=== PATIENT | male | born 1960 | race Caucasian/White ===

== ENCOUNTER → 2016-04-09 | Outpatient (CLI) | payer BC ==
[~2016-04-09] MED LIST: CLR/5 PO; LOSA50TA36 PO; PANT40TA PO; SIMV40TA2 PO
--- NOTE | 2016-04-09 16:02 | DIAGNOSTIC IMAGING REPORT ---
CHEST 2 VIEWS ROUTINE HISTORY: COUGH COMPARISON: Chest 10/13/2011. FINDINGS: The lungs are clear. Cardiac silhouette is normal in size. No pleural effusions. No pneumothorax. IMPRESSION: No acute process. Electronically signed by: Augusto Moss M.D. 04/09/2016 4:00 PM
== END | disposition home or self-care (01) ==
LOC: C.RAD1850 15:20
PROVIDERS: ATTEND Internal Medicine
DX: R05 Cough (principal)

== ENCOUNTER → 2016-05-12 | Outpatient (CLI) | payer BC ==
[~2016-05-12] MED LIST changes: -LOSA50TA36 PO; +LOSA50TA55 PO
--- NOTE | 2016-05-12 13:02 | DIAGNOSTIC IMAGING REPORT ---
DOUBLE CONTRAST UPPER GI SERIES AND BARIUM SWALLOW CLINICAL HISTORY: Dysphagia with solids. Difficulty swallowing. COMPARISON STUDY: None FLUOROSCOPY TIME: 4.1 minutes. FINDINGS: Esophageal motility was normal. A small hiatal hernia was noted. There was persistent mild narrowing at the gastroesophageal junction. A 13 mm barium tablet did not pass beyond this level on this examination and several images demonstrated mild mucosal irregularity at this level. No reflux was elicited. Gastric fold pattern was normal. Duodenum was normal. Caliber of the opacified jejunum was normal. IMPRESSION: Small hiatal hernia with area of mild narrowing at the gastroesophageal junction with persistent holdup of a 13 mm barium tablet at this level. Mild associated mucosal irregularity. Upper endoscopy is recommended to exclude a mucosal lesion/stricture. Electronically signed by: Tramaine Ac M.D. 05/12/2016 1:00 PM Dictated Date/Time: 05/12/2016 12:58 PM
== END | disposition home or self-care (01) ==
LOC: C.RAD 12:08
PROVIDERS: ATTEND Internal Medicine
DX: R13.10 Dysphagia, unspecified (principal); K44.9 Diaphragmatic hernia without obstruction or gangrene

== ENCOUNTER → 2016-05-26 | Day surgery (SDC) | payer BC ==
[2016-05-22 11:26] VITALS: BMI 37.0
[~2016-05-26] VITALS: Ht 185.4 cm; Wt 129.6 kg
[~2016-05-26] MED LIST changes: +LIDOCAINE HCL 2% 2 ML VIAL (20MG/ML) ONE; +MIDAZOLAM HCL 1 MG/ML 2ML VIAL ONE; +ONDANSETRON INJ 2 MG/ML 2 ML VIAL ONE; +PROPOFOL IV EMULSION 10 MG/ML 20 ML VIAL IV ONE; +SODIUM CHLORIDE 0.9% 500ML 500 ML IV ONE
[2016-05-26 14:23] VITALS: Ht 185.4 cm; Wt 129.6 kg
--- NOTE | 2016-05-26 15:03 | Endo History and Physical ---
History & Physical Date of Service: May 26, 2016. Chief Complaint: Abnormal findings on barium swallow Referring Physician: DR. RODRÍGUEZ History of Present Illness 55 yo CM who presents for EGD secondary to abnormal Barium swallow. Past Surgical History Hx Cardiac Surgery: No Hx Internal Defibrillator: No Hx Pacemaker: No Hx Abdominal Surgery: No Hx of Implantable Prosthesis: No Hx Post-Op Nausea and Vomiting: No Hx Cancer Surgery: No Hx Thoracic Surgery: No Hx Orthopedic: Yes (RT KNEE SURGERY, RT ELBOW SURGERY) Hx Urinary Tract Surgery: No Family History None Social History Smoking Status: Never Smoker Hx Substance Use: No Hx Alcohol Use: Yes (4 BEERS/DAY) Allergies Coded Allergies: No Known Allergies (Unverified , 05/26/16) Current Medications Reported Home Medications Medications Dose Route/Sig Max Daily Dose Days Date Category Dose Instructions Clarinex (Desloratadine) 5 Mg Tab 5 Mg PO QAM 05/22/16 Reported Zocor (Simvastatin) 40 Mg Tab 40 Mg PO HS 05/22/16 Reported Losartan Potassium/Hydroc (Losartan Potassium & Hydrochlo) 1 Tab Tab 1 Tab PO QAM 05/22/16 Reported 100MG/25MG Vital Signs Weight (Kilograms): 129.55 Height (Feet): 6 Height (Inches): 1 Date Time Temp Pulse Resp B/P Pulse Ox O2 Delivery O2 Flow Rate FiO2 05/26/16 14:35 36.6 90 20 164/86 97 Room Air Physical Exam General Appearance: WD/WN, no apparent distress Respiratory/Chest: Auscultation: breath sounds normal Cardiovascular: Heart Auscultation: RRR Abdomen: Bowel Sounds: normal Inspection & Palpation: soft, non-distended, no tenderness, guarding & rebound Assessment and Plan Assessment: 55 yo CM who presents for EGD secondary to abnormal Barium swallow. Plan: Proceed with EGD.
--- NOTE | 2016-05-26 15:18 | Discharge Instructions ---
Endoscopy Patient Instructions Date / Procedure(s) Performed May 26, 2016. Allergy Information Coded Allergies: No Known Allergies (Unverified , 05/26/16) Discharge Date / Findings May 26, 2016. Gastritis s/p biopsies Hiatal hernia Esophageal stricture s/p dilation to 15mm Reflux esophagitis Medication Instructions 1) OK to resume all medications today as prescribed 2) Start Protonix 40mg by mouth each morning 1/2 hour prior to breakfast. Reported Home Medications Medications Dose Route/Sig Max Daily Dose Days Date Category Dose Instructions Clarinex (Desloratadine) 5 Mg Tab 5 Mg PO QAM 05/22/16 Reported Zocor (Simvastatin) 40 Mg Tab 40 Mg PO HS 05/22/16 Reported Losartan Potassium/Hydroc (Losartan Potassium & Hydrochlo) 1 Tab Tab 1 Tab PO QAM 05/22/16 Reported 100MG/25MG Provider Instructions Activity Restrictions - No exercising or heavy lifting for 24 hours. - Do not drink alcohol the day of the procedure. - Do not drive a car or operate machinery until the day after the procedure. - Do not make any important decisions or sign important papers in 24 hours after the procedure. Following Day: - Return to full activity which may include returning to work/school. Diet Start your diet with liquids and light foods (jello, soup, juice, toast). Then eat your usual diet if not nauseated. Treatment For Common After Affects For mild abdominal pain, bloating, or excessive gas: - Rest - Eat lightly - Lie on right side Follow-Up Information Follow-up with DR. RODRÍGUEZ as scheduled Anesthesia Information What You Should Know You have had a procedure that required some medicine to reduce anxiety and discomfort. This treatment is called moderate sedation. After receiving the treatment, you may be sleepy, but you will be able to breathe on your own. The effects of the treatment may last for several hours. Follow these instructions along with Activity/Diet recommendations noted above: * Do NOT do anything where dizziness or clumsiness would be dangerous. * Rest quietly at home today, then you can be up and about tomorrow. * Have a responsible person stay with you the rest of today. * You may have had an I.V. today. If so, you may take the dressing off later today. Recommendations Call your doctor if: * Trouble breathing * Continuous vomiting for more than 24 hours * Temperature above 101 degrees * Severe abdominal pain or bloating * Pain not relieved by pain medicine ordered * There is increased drainage or redness from any incision * A large amount of rectal bleeding greater than 2-3 tablespoons. (If you had a polyp/s removed or have hemorrhoids, a small amount of blood - from the rectum is to be expected.) * You have any unanswered questions or concerns. IN THE EVENT OF A SERIOUS EMERGENCY, GO TO THE NEAREST EMERGENCY ROOM Your discharge instructions were prepared by provider Willy Arellano. Patient Instructions Signature Page Williams Castaneda Patient (or Guardian) Signature/Date: I have read and understand the instructions given to me by my caregivers. Caregiver/RN/Doctor Signature/Date: The above-named patient and/or guardian has received patient instructions on this date. + Original Patient Signature Page (only) stays with chart. Please make copy for patient.
--- NOTE | 2016-05-26 15:23 | GI REPORT ---
Procedure Date: 05/26/2016 2:38 PM Procedure: Upper GI endoscopy Indications: Abnormal UGI series Medicines: Monitored Anesthesia Care Complications: No immediate complications. Estimated Blood Loss: Estimated blood loss: none. Procedure: Pre-Anesthesia Assessment: - Prior to the procedure, a History and Physical was performed, and patient medications and allergies were reviewed. The patient's tolerance of previous anesthesia was also reviewed. The risks and benefits of the procedure and the sedation options and risks were discussed with the patient. All questions were answered, and informed consent was obtained. Prior Anticoagulants: The patient has taken no previous anticoagulant or antiplatelet agents. ASA Grade Assessment: II - A patient with mild systemic disease. After reviewing the risks and benefits, the patient was deemed in satisfactory condition to undergo the procedure. After obtaining informed consent, the endoscope was passed under direct vision. Throughout the procedure, the patient's blood pressure, pulse, and oxygen saturations were monitored continuously. The scope was introduced through the mouth, and advanced to the second part of duodenum. The upper GI endoscopy was accomplished without difficulty. The patient tolerated the procedure well. Findings: LA Grade C (one or more mucosal breaks continuous between tops of 2 or more mucosal folds, less than 75% circumference) esophagitis with no bleeding was found. One moderate benign-appearing, intrinsic stenosis was found. This measured 1.2 cm (inner diameter) x less than one cm (in length) and was traversed. A TTS dilator was passed through the scope. Dilation with a 12-13.5-15 mm balloon (to a maximum balloon size of 15 mm) dilator was performed. The dilation site was examined and showed moderate improvement in luminal narrowing. A small hiatus hernia was present. Localized moderate inflammation characterized by erosions and erythema was found in the gastric antrum. Biopsies were taken with a cold forceps for histology. The examined duodenum was normal. Impression: - LA Grade C reflux esophagitis. - Benign-appearing esophageal stenosis. Dilated. - Small hiatus hernia. - Gastritis. Biopsied. - Normal examined duodenum. Recommendation: - Resume previous diet. - Continue present medications. - Await pathology results. - Repeat the upper endoscopy PRN for retreatment. - Return to primary care physician as previously scheduled. Willy Arellano, 05/26/2016 3:23:12 PM This report has been signed electronically. Note Initiated On: 05/26/2016 2:38 PM I attest to the content of the Intraoperative Record and orders documented therein, exceptions below
[2016-05-26 15:55] VITALS: BP 135/90; PULSE 67; O2SAT 96
--- NOTE | 2016-05-26 16:07 | Anesthesiology Progress Note ---
Anesthesia Post Op Note Date & Time May 26, 2016 at 16:07 Vital Signs Pain Intensity: 0 Vital Signs Past 12 Hours Date Time Temp Pulse Resp B/P Pulse Ox O2 Delivery O2 Flow Rate FiO2 05/26/16 15:55 67 18 135/90 96 Room Air 05/26/16 15:40 66 18 125/73 96 Room Air 05/26/16 15:25 73 16 156/81 98 Mask 10 05/26/16 14:35 36.6 90 20 164/86 97 Room Air Notes Mental Status: alert / awake / arousable, participated in evaluation Pt Amnestic to Procedure: Yes Nausea / Vomiting: adequately controlled Pain: adequately controlled Airway Patency, RR, SpO2: stable & adequate BP & HR: stable & adequate Hydration State: stable & adequate Anesthetic Complications: no major complications apparent
== END | disposition home or self-care (01) ==
LOC: C.GI 14:17
PROVIDERS: ATTEND Internal Medicine
DX: K29.50 Unspecified chronic gastritis without bleeding (principal); K21.0 Gastro-esophageal reflux disease with esophagitis; K22.2 Esophageal obstruction; K44.9 Diaphragmatic hernia without obstruction or gangrene; R93.3 Abnormal findings on diagnostic imaging of other parts of digestive tract

== ENCOUNTER → 2016-09-22 | Day surgery (SDC) | payer BC ==
[2016-09-09 14:36] VITALS: Ht 185.4 cm; Wt 118.2 kg
[~2016-09-22] VITALS: Ht 185.4 cm; Wt 118.2 kg
[~2016-09-22] MED LIST changes: +ATROPINE SULFATE 0.1 MG/ML 5ML SYR IV PRN; +EpHEDrine SULFATE INJ 50 MG/ML AMP IV PRN; +FENTANYL CITRATE INJ 50 MCG/1 ML 2 ML VIAL ONE; -LIDOCAINE HCL 2% 2 ML VIAL (20MG/ML) ONE; +LOSA50TA36 PO; -LOSA50TA55 PO; -MIDAZOLAM HCL 1 MG/ML 2ML VIAL ONE; -ONDANSETRON INJ 2 MG/ML 2 ML VIAL ONE; -SODIUM CHLORIDE 0.9% 500ML 500 ML IV ONE
--- NOTE | 2016-09-22 13:16 | Endo History and Physical ---
History & Physical Date of Service: Sep 22, 2016. Chief Complaint: Chronic reflux, esophagitis Referring Physician: Edwina History of Present Illness 56 yo CM who presents for EGD secondary to GERD. Past Surgical History Hx Cardiac Surgery: No Hx Internal Defibrillator: No Hx Pacemaker: No Hx Abdominal Surgery: No Hx Post-Op Nausea and Vomiting: No Hx Cancer Surgery: No Hx Thoracic Surgery: No Hx Orthopedic: Yes (RT KNEE SURGERY, RT ELBOW SURGERY) Hx Urinary Tract Surgery: No Family History None Social History Smoking Status: Never Smoker Hx Substance Use: No Hx Alcohol Use: Yes (4 BEERS/DAY) Allergies Coded Allergies: No Known Allergies (Unverified , 09/22/16) Current Medications Reported Home Medications Medications Dose Route/Sig Max Daily Dose Days Date Category Dose Instructions Protonix (Pantoprazole) 40 Mg Tab 1 Tab PO QAM 09/09/16 Reported Clarinex (Desloratadine) 5 Mg Tab 5 Mg PO QAM 05/22/16 Reported Zocor (Simvastatin) 40 Mg Tab 40 Mg PO HS 05/22/16 Reported Losartan Potassium/Hydroc (Losartan Potassium & Hydrochlo) 1 Tab Tab 1 Tab PO QAM 05/22/16 Reported 100MG/25MG Vital Signs Weight (Kilograms): 118.18 Height (Feet): 6 Height (Inches): 1 Date Time Temp Pulse Resp B/P (MAP) Pulse Ox O2 Delivery O2 Flow Rate FiO2 09/22/16 12:40 36.6 62 20 153/99 (117) 98 Room Air Physical Exam General Appearance: WD/WN, no apparent distress Respiratory/Chest: Auscultation: breath sounds normal Cardiovascular: Heart Auscultation: RRR Abdomen: Bowel Sounds: normal Inspection & Palpation: soft, non-distended, no tenderness, guarding & rebound Assessment and Plan Assessment: 56 yo CM who presents for EGD secondary to GERD. Plan: Proceed with EGD.
--- NOTE | 2016-09-22 13:30 | Discharge Instructions ---
Endoscopy Patient Instructions Date / Procedure(s) Performed Sep 22, 2016. EGD Allergy Information Coded Allergies: No Known Allergies (Unverified , 09/22/16) Discharge Date / Findings Sep 22, 2016. Hiatal hernia Schatzki's Ring s/p dilation Medication Instructions OK to resume all medications today as prescribed Reported Home Medications Medications Dose Route/Sig Max Daily Dose Days Date Category Dose Instructions Protonix (Pantoprazole) 40 Mg Tab 1 Tab PO QAM 09/09/16 Reported Clarinex (Desloratadine) 5 Mg Tab 5 Mg PO QAM 05/22/16 Reported Zocor (Simvastatin) 40 Mg Tab 40 Mg PO HS 05/22/16 Reported Losartan Potassium/Hydroc (Losartan Potassium & Hydrochlo) 1 Tab Tab 1 Tab PO QAM 05/22/16 Reported 100MG/25MG Provider Instructions Activity Restrictions - No exercising or heavy lifting for 24 hours. - Do not drink alcohol the day of the procedure. - Do not drive a car or operate machinery until the day after the procedure. - Do not make any important decisions or sign important papers in 24 hours after the procedure. Following Day: - Return to full activity which may include returning to work/school. Diet Start your diet with liquids and light foods (jello, soup, juice, toast). Then eat your usual diet if not nauseated. Treatment For Common After Affects For mild abdominal pain, bloating, or excessive gas: - Rest - Eat lightly - Lie on right side Follow-Up Information Follow-up with Edwina as scheduled Anesthesia Information What You Should Know You have had a procedure that required some medicine to reduce anxiety and discomfort. This treatment is called moderate sedation. After receiving the treatment, you may be sleepy, but you will be able to breathe on your own. The effects of the treatment may last for several hours. Follow these instructions along with Activity/Diet recommendations noted above: * Do NOT do anything where dizziness or clumsiness would be dangerous. * Rest quietly at home today, then you can be up and about tomorrow. * Have a responsible person stay with you the rest of today. * You may have had an I.V. today. If so, you may take the dressing off later today. Recommendations Call your doctor if: * Trouble breathing * Continuous vomiting for more than 24 hours * Temperature above 101 degrees * Severe abdominal pain or bloating * Pain not relieved by pain medicine ordered * There is increased drainage or redness from any incision * A large amount of rectal bleeding greater than 2-3 tablespoons. (If you had a polyp/s removed or have hemorrhoids, a small amount of blood - from the rectum is to be expected.) * You have any unanswered questions or concerns. IN THE EVENT OF A SERIOUS EMERGENCY, GO TO THE NEAREST EMERGENCY ROOM Your discharge instructions were prepared by provider Willy Arellano. Patient Instructions Signature Page Williams Castaneda Patient (or Guardian) Signature/Date: I have read and understand the instructions given to me by my caregivers. Caregiver/RN/Doctor Signature/Date: The above-named patient and/or guardian has received patient instructions on this date. + Original Patient Signature Page (only) stays with chart. Please make copy for patient.
--- NOTE | 2016-09-22 13:34 | GI REPORT ---
Procedure Date: 09/22/2016 1:18 PM Procedure: Upper GI endoscopy Indications: Gastro-esophageal reflux disease Medicines: Monitored Anesthesia Care Complications: No immediate complications. Estimated Blood Loss: Estimated blood loss: none. Procedure: Pre-Anesthesia Assessment: - Prior to the procedure, a History and Physical was performed, and patient medications and allergies were reviewed. The patient's tolerance of previous anesthesia was also reviewed. The risks and benefits of the procedure and the sedation options and risks were discussed with the patient. All questions were answered, and informed consent was obtained. Prior Anticoagulants: The patient has taken no previous anticoagulant or antiplatelet agents. ASA Grade Assessment: II - A patient with mild systemic disease. After reviewing the risks and benefits, the patient was deemed in satisfactory condition to undergo the procedure. After obtaining informed consent, the endoscope was passed under direct vision. Throughout the procedure, the patient's blood pressure, pulse, and oxygen saturations were monitored continuously. The scope was introduced through the mouth, and advanced to the second part of duodenum. The upper GI endoscopy was accomplished without difficulty. The patient tolerated the procedure well. Findings: A moderate Schatzki ring (acquired) was found at the gastroesophageal junction. A TTS dilator was passed through the scope. Dilation with a 15-16.5-18 mm balloon (to a maximum balloon size of 18 mm) dilator was performed. The dilation site was examined and showed moderate improvement in luminal narrowing. A small hiatus hernia was present. The examined duodenum was normal. Impression: - Moderate Schatzki ring. Dilated. - Small hiatus hernia. - Normal examined duodenum. - No specimens collected. Recommendation: - Resume previous diet. - Continue present medications. - Repeat the upper endoscopy PRN for retreatment. - Return to primary care physician as previously scheduled. Willy Arellano DO 09/22/2016 1:33:53 PM This report has been signed electronically. Note Initiated On: 09/22/2016 1:18 PM I attest to the content of the Intraoperative Record and orders documented therein, exceptions below
[2016-09-22 14:05] VITALS: BP 143/76; PULSE 61; O2SAT 96
--- NOTE | 2016-09-22 14:09 | Anesthesiology Progress Note ---
Anesthesia Post Op Note Date & Time Sep 22, 2016 at 14:09 Vital Signs Pain Intensity: 0 Vital Signs Past 12 Hours Date Time Temp Pulse Resp B/P (MAP) Pulse Ox O2 Delivery O2 Flow Rate FiO2 09/22/16 12:40 36.6 62 20 153/99 (117) 98 Room Air Notes Mental Status: alert / awake / arousable, participated in evaluation Pt Amnestic to Procedure: Yes Nausea / Vomiting: adequately controlled Pain: adequately controlled Airway Patency, RR, SpO2: stable & adequate BP & HR: stable & adequate Hydration State: stable & adequate Anesthetic Complications: no major complications apparent
== END | disposition home or self-care (01) ==
LOC: C.GI 12:20
PROVIDERS: ATTEND Internal Medicine
DX: K21.9 Gastro-esophageal reflux disease without esophagitis (principal); K20.9 Esophagitis, unspecified; K22.2 Esophageal obstruction; K44.9 Diaphragmatic hernia without obstruction or gangrene; Z98.890 Other specified postprocedural states; Z68.34 Body mass index [BMI] 34.0-34.9, adult; E66.9 Obesity, unspecified

== ENCOUNTER → 2016-10-15 | Outpatient (CLI) | payer BC ==
[~2016-10-15] MED LIST changes: -ATROPINE SULFATE 0.1 MG/ML 5ML SYR IV PRN; -EpHEDrine SULFATE INJ 50 MG/ML AMP IV PRN; -FENTANYL CITRATE INJ 50 MCG/1 ML 2 ML VIAL ONE; -LOSA50TA36 PO; +LOSA50TA55 PO; -PROPOFOL IV EMULSION 10 MG/ML 20 ML VIAL IV ONE
[2016-10-15 15:39] LABS: BASO % 0.3 %; BASO ABS # 0.02 K/uL (0-0.2); COMPLETE YES; EOS % 2.1 %; HEMATOCRIT 43.1 % (42-52); IG% 0.3 %; LYMPH % 30.6 %; LYMPH ABS # 2.18 K/uL (1.2-3.4); MEAN CELL VOLUME 96.2 fL (80-100); MEAN CORPUSCULAR HEMOGLOBIN 34.8 pg (25-34); MEAN CORPUSCULAR HGB CONC 36.2 g/dl (32-36); MONO % 7.7 %; PLATELET COUNT 184 K/uL (130-400); RED BLOOD COUNT 4.48 M/uL (4.7-6.1); WHITE BLOOD COUNT 7.13 K/uL (4.8-10.8)
[2016-10-15 16:01] LABS: BLOOD UREA NITROGEN 17 mg/dl (7-18); BUN/CREATININE RATIO 14.5 (10-20); CALCIUM 9.2 mg/dl (8.5-10.1); CARBON DIOXIDE 30 mmol/L (21-32); CHLORIDE 101 mmol/L (98-107); GLUCOSE 96 mg/dl (70-99); POTASSIUM 3.3 mmol/L (3.5-5.1); SODIUM 138 mmol/L (136-145)
[2016-10-16 07:28] LABS: ESTIMATED AVERAGE GLUCOSE 105 mg/dl; HA1C FLAG Normal (Normal)
== END | disposition home or self-care (01) ==
LOC: C.LAB 14:23
PROVIDERS: ATTEND Physician Assistant
DX: I10 Essential (primary) hypertension (principal); R73.9 Hyperglycemia, unspecified

== ENCOUNTER → 2017-04-20 | Outpatient (CLI) | payer BC ==
[~2017-04-20] MED LIST changes: +LOSA50TA36 PO; -LOSA50TA55 PO
[2017-04-20 10:16] LABS: BASO % 0.3 %; BASO ABS # 0.02 K/uL (0-0.2); EOS % 2.6 %; EOS ABS # 0.17 K/uL (0-0.5); HEMATOCRIT 43.9 % (42-52); HEMOGLOBIN 16.1 g/dL (14.0-18.0); IG# 0.01 K/uL (0.00-0.02); LYMPH % 34.8 %; LYMPH ABS # 2.29 K/uL (1.2-3.4); MEAN CORPUSCULAR HEMOGLOBIN 34.8 pg (25-34); MEAN CORPUSCULAR HGB CONC 36.7 g/dl (32-36); MEAN PLATELET VOLUME 9.8 fL (7.4-10.4); MONO % 7.4 %; MONO ABS # 0.49 K/uL (0.11-0.59); NEUT % 54.7 %; PLATELET COUNT 168 K/uL (130-400); RED CELL DISTRIBUTION WIDTH CV 11.7 % (11.5-14.5); RED CELL DISTRIBUTION WIDTH SD 40.3 fL (36.4-46.3); WHITE BLOOD COUNT 6.58 K/uL (4.8-10.8)
[2017-04-20 10:38] LABS: HEMOGLOBIN A1C 5.3 % (4.5-5.6)
[2017-04-20 10:50] LABS: ALT/SGPT 57 U/L (12-78); AST/SGOT 23 U/L (15-37); BLOOD UREA NITROGEN 16 mg/dl (7-18); CALCIUM 8.6 mg/dl (8.5-10.1); CARBON DIOXIDE 30 mmol/L (21-32); CHOLESTEROL < 50 mg/dl (0-200); CREATININE 0.81 mg/dl (0.60-1.40); GLUCOSE 108 mg/dl (70-99); POTASSIUM 3.7 mmol/L (3.5-5.1); SODIUM 137 mmol/L (136-145); URIC ACID 5.4 mg/dl (2.6-7.2)
== END ==
LOC: C.LAB 09:13
PROVIDERS: ATTEND Internal Medicine
DX: E78.00 Pure hypercholesterolemia, unspecified (principal)

== ENCOUNTER 2023-10-21 13:40 | Observation (INO) ==
--- NOTE | 2023-10-21 13:53 | Emergency Department Note ---
Impression & Plan MAGDA (acute kidney injury), Acute hyperkalemia, Acute hyponatremia ED Provider Note NAME: IRVIN BOWEN AGE: 63 SEX: M : 1960 ARRIVES VIA: Walk-In INFORMANT: Patient, ED PROVIDER(S): Wenceslao Soliman DO CHIEF COMPLAINT: Dizziness HPI: The patient is a 63-year-old male who presented to the emergency department for an evaluation of dizziness. The patient states that he was in our facility recently and he was evaluated for a bad outbreak of poison maddison. The patient was already taking a steroid taper at that time. He was restarted on another pulse dose as well as a taper. At that time he was also felt to have right foot cellulitis which could be secondary to the rash. The patient was started on a course of antibiotics for this which included Keflex and Bactrim. The patient was feeling much better from the rash. His foot was significantly improved. The swelling is gone down. The patient started noticing when he would stand up he would become very dizzy and lightheaded. He was also noticing increased urinary frequency. He went to see his family doctor and his blood pressure was low. He was told to hold his blood pressure medication. He then had laboratory studies drawn which did show that his creatinine has gone up compared to previous. It is unclear if this is from the medications he was started on for the cellulitis. The patient had continued symptoms today and called his family doctor. He was instructed to come to the emergency department for further evaluation. He denies having any headache. He denies having any fever. He does still get some pain in his right foot but he states the swelling and the redness is significantly improved. He denies having any back pain or vomiting. ROS: See above HPI for pertinent positives & negatives. A total of 10 systems reviewed and were otherwise negative. PAST MEDICAL HISTORY: See Below PAST SURGICAL HISTORY: See Below FAMILY HISTORY: See Below SOCIAL HISTORY: See Below HOME MEDICATIONS: See Below ALLERGIES: See Below VITALS: See Below PHYSICAL EXAMINATION: GENERAL: Patient is awake alert in no acute distress patient is resting comfortably and showing no signs of anxiety EYES: The conjunctivae are clear. The pupils are round and reactive. EARS, NOSE, MOUTH AND THROAT: The nose is without any evidence of any deformity. NECK: The neck is nontender and supple. RESPIRATORY: Normal respiratory effort is noted there is no evidence of wheezing rhonchi or rales CARDIOVASCULAR: Regular rate and rhythm noted there no murmurs rubs or gallops normal S1 normal S2. GASTROINTESTINAL: The abdomen is soft. Abdomen is nontender. MUSCULOSKELETAL/EXTREMITIES: There is no evidence of gross deformity full range of motion is noted in the hips and shoulders. SKIN: There is no obvious evidence of any rash. There are no petechiae, pallor or cyanosis noted. NEUROLOGIC: Patient is awake alert and oriented x3. Gait was steady. MEDICAL DECISION MAKING: The patient is a 63-year-old male who presented to the emergency department because of elevated creatinine. The patient was seen in our facility recently for a poison maddison outbreak. He was already on steroids but was started on a new prednisone bolus with taper. The patient was also started on 2 antibiotics at the time because of right foot cellulitis. He was started on Bactrim and Keflex. I discussed the patient's laboratory and radiographic studies with him today. His EKG shows no changes so I think the hyperkalemia will be treated with IV fluids only. The patient was feeling much better on reevaluation. I discussed the patient's laboratory and radiographic studies with the on-call [facility] hospitalist. Given his findings as well as his dizziness upon standing and hypotension I do feel the patient may be a good candidate for inpatient management. They recommended that we obtain a second CMP on the patient after the second liter of fluid was done. This was ordered by myself. Triage Nursing notes reviewed. Prior medical records reviewed Vital Signs: reviewed and remarkable for hypotension. Differential diagnosis: Infection, dehydration, metabolic abnormality, hypo/hyperglycemia, electrolyte disturbance, anemia, hypoxia, cardiac sources, intracerebral event, toxicologic, neurologic, as well as other pathologies. ER treatment provided: See below Diagnostics interpreted by me: ECG: EKG was obtained in the emergency department. My interpretation is normal sinus rhythm at 78 bpm. There was no ectopy. There is no acute ST segment abnormalities noted. This was compared to a tracing from April 17, 2019. No changes were noted. Cardiac Monitoring: An order was placed for continuous cardiac monitoring. The monitor shows a rate of 78 bpm with sinus rhythm. Laboratory studies: As stated above and show below. Imaging studies: See below. Radiographic imaging was reviewed by myself Consultation(s): I discussed this case with Dr. Sharpe who is on-call for the [facility] hospitalist group. Past Med/Surg History Problem List (Updated 10/21/23 @ 14:44 by Wenceslao Soliman DO) Acute hyponatremia (Acute) Acute hyperkalemia (Acute) MAGDA (acute kidney injury) (Acute) Diabetes Muscle cramping Cellulitis (Acute) Contact dermatitis due to poison maddison (Acute) Alcohol abuse Severe obesity (BMI >= 40) Liver fibrosis Alcoholic fatty liver NAFLD (nonalcoholic fatty liver disease) Alcohol use Dyslipidemia (high LDL; low HDL) Primary hypertension Fatty liver likely mixed NAFLD & alcohol related fatty liver Seborrheic keratoses GERD (gastroesophageal reflux disease) Microscopic hematuria (Chronic) Allergic rhinitis (Chronic) Chronic reflux esophagitis (Chronic) Hiatal hernia (Chronic) Hypercholesterolemia (Chronic) Hyperglycemia (Chronic) Schatzki's ring (Chronic) Hypertension (Chronic) Medical History GERD (gastroesophageal reflux disease) Surgical History History of arthroscopy of right knee History of arthroscopy of left knee History of tonsillectomy History of wisdom tooth extraction Family History Mother Diabetes Lung cancer Sister Diabetes Lung cancer Father Lung cancer Other Hypertension No family history of adverse response to anesthesia Denies family history of Ovarian cancer Prostate cancer Myocardial infarction Breast cancer Colorectal cancer Social History Smoking Status: Never smoker Second Hand Exposure: No; Do You Dip or Chew Tobacco: No; Hx Alcohol Use: Yes (Socially ) Alcohol type: beer Hx Substance Use: No Preferred Language: Kyrgyz Communication Ability: Effective 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 Green 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 Required: No Beliefs That Will Affect Care: None marital status: Current Living Situation: Spouse and Family current occupational status: employed 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 [employer] Feels Safe at Home: Yes Childhood Exposure to Second-Hand Smoke: Yes Dental Care, Regularly: Yes Physical Activity Frequency: 3-4 Times per Week Seatbelt Use: always Sunscreen Use: No Assistive Devices: Glasses Allergies Allergies Allergy/AdvReac Type Severity Reaction Status Date / Time No Known Drug Allergies Allergy Verified 10/20/23 13:18 Home Meds Home Medications Medication Instructions Recorded Confirmed baclofen 5 mg tablet 5 mg PO TID PRN 10/20/23 magnesium 200 mg tablet 200 mg PO .EVERY OTHER DAY 10/20/23 10/20/23 multivitamin (Multiple Vitamins 1 tab PO DAILY 10/20/23 10/20/23 tablet) potassium chloride 10 mEq 10 meq PO .EVERY OTHER DAY 10/20/23 10/20/23 tablet,extended release(part/cryst) Previous Rx's Medication Instructions Recorded olmesartan 40 mg tablet 40 mg PO DAILY #90 tabs 03/03/23 amlodipine 5 mg tablet 5 mg PO DAILY #90 tabs 03/09/23 chlorthalidone 25 mg tablet 12.5 mg (1/2 x 25 mg) PO DAILY #45 03/09/23 tabs pantoprazole 40 mg tablet,delayed 40 mg PO QAM #90 tabs 03/09/23 release rosuvastatin 40 mg tablet 40 mg PO DAILY #90 tabs 09/22/23 spironolactone 50 mg tablet 50 mg PO DAILY #90 tabs 10/01/23 prednisone 10 mg tablet 10 mg PO DAILY #21 tabs 10/05/23 Results & Data (ED) Vital Signs Vital Signs - 24 hr 10/21/23 13:42 10/21/23 14:06 10/21/23 14:13 Temperature 36.6 C Temperature Source Temporal Artery Scan Pulse Rate 89 78 Respiratory Rate 20 Respiratory Effort / Characteristics Non-Labored Spontaneous Respiratory Depth Normal Blood Pressure 100/65 Blood Pressure Mean 76 Pulse Oximetry 94 95 Oxygen Delivery Method Room Air Room Air Sepsis Recent Fever Within 48 Hours No Sepsis New/Unexplained Change in Mental Status N/A Sepsis Action Taken by Nursing No Action Required Home Medications Current Medication List: was personally reviewed by me Laboratory Data Attestation: I reviewed the patient's lab results. 10/21/23 14:04 10/21/23 14:04 Lab Results 10/21/23 Range/Units 14:04 WBC 12.99 H (4.8-10.8) K/ul RBC 4.11 L (4.70-6.10) M/uL Hgb 14.0 (14.0-18.0) g/dl Hct 40.5 L (42.0-52.0) % MCV 98.5 (80.0-100.0) fL MCH 34.1 H (25.0-34.0) pg MCHC 34.6 (32.0-36.0) g/dL RDW Std Deviation 42.8 (36.4-46.3) fL RDW Coeff of Zena 11.8 (11.5-14.5) % Plt Count 201 (130-400) K/uL MPV 9.8 (9.4-12.4) fL Immature Gran % (Auto) 0.8 % Neut % (Auto) 58.4 % Lymph % (Auto) 31.7 % [place] % (Auto) 6.7 % Eos % (Auto) 1.9 % Baso % (Auto) 0.5 % Neut # (Auto) 7.58 H (1.40-6.50) K/uL Lymph # (Auto) 4.12 H (1.20-3.40) K/uL [place] # (Auto) 0.87 H (0.11-0.59) K/uL Eos # (Auto) 0.25 (0.00-0.50) K/uL Baso # (Auto) 0.06 (0.00-0.20) K/uL Immature Gran # (Auto) 0.11 (0.01-0.20) K/uL Sodium 128 L (136-145) mmol/L Potassium 5.7 H (3.5-5.1) mmol/L Chloride 100 (98-107) mmol/L Carbon Dioxide 19 L (21-32) mmol/L Anion Gap 9 (3-11) BUN 74 H (6-23) mg/dl Creatinine 2.04 H D (0.6-1.4) mg/dl Est Cr Clr Drug Dosing 51.4 ml/min Est GFR ( Amer) 39.0 ml/min Est GFR (Non-Af Amer) 33.7 ml/min BUN/Creatinine Ratio 36.3 H (10-20) Glucose 109 H (70-99(Fasting)) mg/dl Osmolality 299 (280-300) mOsm/kg Calcium 10.1 (8.6-10.3) mg/dl Magnesium 2.0 (1.7-2.4) mg/dl Total Bilirubin 0.9 (0.2-1.0) mg/dl AST 22 (13-39) U/L ALT 31 (7-52) U/L Alkaline Phosphatase 34 (34-104) U/L Total Creatine Kinase 144 (30-223) U/L Troponin I High Sens 6.5 (0-20) pg/ml Total Protein 7.2 (6.0-8.3) gm/dl Albumin 4.4 (3.4-5.0) gm/dl Globulin 2.8 (2.5-4.0) gm/dl Albumin/Globulin Ratio 1.6 (0.9-2) Lipase 56 (11-82) U/L Procalcitonin 0.04 (0-0.5) ng/ml Random Cortisol 6.60 mcg/dl Administered Medications Discontinued Medications Sodium Chloride (Nss) 1,000 mls @ 999 mls/hr IV .Q1H1M STA Stop: 10/21/23 14:48 Last Admin: 10/21/23 14:07 Dose: 999 mls/hr Documented By: AM Imaging Data Attestation: I personally reviewed and interpreted this imaging study as follows: My Impression: 1 view chest x-ray was obtained in the emergency department. My interpretation is no free air or definite infiltrate, final report below. Radiologist's Impression: Chest X-Ray 10/21/23 13:48 XR chest 1V portable CLINICAL HISTORY: weakness COMPARISON STUDY: Chest radiograph April 17, 2019. FINDINGS: Lung volumes are normal. Lungs are clear. There is no pneumothorax or pleural effusion. Cardiac size is stable. Mediastinal contours are normal. There is no evidence for pulmonary edema. IMPRESSION: No acute cardiopulmonary findings. ACT 112: Negative or not required by law. Electronically signed by: Tramaine Ac M.D. 10/21/2023 2:46 PM Foot X-Ray 10/21/23 13:48 XR foot RT min 3V routine CLINICAL HISTORY: Right foot pain. COMPARISON: None FINDINGS: Alignment of the right foot is anatomic. Tarsometatarsal joints are intact. There is no acute fracture. No osseous lesions are identified. Mild midfoot osteoarthritis. IMPRESSION: 1. No fracture or dislocation within the right foot. 2. Mild mid foot osteoarthritis. ACT 112: Negative or not required by law. Electronically signed by: Tramaine Ac M.D. 10/21/2023 2:48 PM Discharge Plan Visit Data Chief Complaint: Abnormal Labs/Diagnostic Testing Stated Complaint: ABNORMAL TESTS ED Provider: Wenceslao Soliman Discharge Problem: MAGDA (acute kidney injury), Acute hyperkalemia, Acute hyponatremia Patient Disposition: Being Evaluated by Hospitalist Forms Stand Alone Forms: My [facility] Prescriptions Prescriptions: No Action olmesartan 40 mg tablet 40 mg PO DAILY Qty: 90 3RF rosuvastatin 40 mg tablet 40 mg PO DAILY Qty: 90 3RF spironolactone 50 mg tablet 50 mg PO DAILY Qty: 90 3RF chlorthalidone 25 mg tablet 12.5 mg PO DAILY Qty: 45 3RF pantoprazole 40 mg tablet,delayed release (DR/EC) 40 mg PO QAM Qty: 90 3RF amlodipine 5 mg tablet 5 mg PO DAILY Qty: 90 3RF baclofen 5 mg tablet 5 mg PO TID PRN multivitamin [Multiple Vitamins] Tablet 1 tab PO DAILY magnesium 200 mg tablet 200 mg PO .EVERY OTHER DAY potassium chloride 10 mEq tablet,ER particles/crystals 10 meq PO .EVERY OTHER DAY prednisone 10 mg tablet 10 mg PO DAILY Qty: 21 0RF Rx Instructions: 4 tabs for 3 days, 2 tabs for 3 days, 1 tab for 3 days Referrals Referrals: Jesenia Graves MD [Primary Care Provider] -
[2023-10-21] MEDS: SODIUM CHLORIDE 0.9% 1,000 ML IV STA (14:07)
[2023-10-21 14:31] LABS: Basophils # (auto) 0.06 K/uL (0.00-0.20); Basophils % (auto) 0.5 %; Eosinophils # (auto) 0.25 K/uL (0.00-0.50); Eosinophils % (auto) 1.9 %; Hematocrit (blood only) 40.5 % (42.0-52.0); Immature Granulocytes # (auto) 0.11 K/uL (0.01-0.20); Immature Granulocytes % (auto) 0.8 %; Lymphocytes # (auto) 4.12 K/uL (1.20-3.40); Lymphocytes % (auto) 31.7 %; Mean Corpuscular Hemoglobin 34.1 pg (25.0-34.0); Mean Corpuscular Hgb Conc 34.6 g/dL (32.0-36.0); Mean Corpuscular Volume 98.5 fL (80.0-100.0); Mean Platelet Volume 9.8 fL (9.4-12.4); Monocytes # (auto) 0.87 K/uL (0.11-0.59); Monocytes % (auto) 6.7 %; Neutrophils # (auto) 7.58 K/uL (1.40-6.50); Neutrophils % (auto) 58.4 %; Platelet Count 201 K/uL (130-400); RDW Coefficient of Variation 11.8 % (11.5-14.5); RDW Standard Deviation 42.8 fL (36.4-46.3); Red Blood Count 4.11 M/uL (4.70-6.10); White Blood Count 12.99 K/ul (4.8-10.8)
[2023-10-21 14:43] LABS: Albumin Level 4.4 gm/dl (3.4-5.0); Anion Gap 9 (3-11); Bilirubin,Total 0.9 mg/dl (0.2-1.0); Calcium 10.1 mg/dl (8.6-10.3); Carbon Dioxide 19 mmol/L (21-32); Chloride 100 mmol/L (98-107); Potassium 5.7 mmol/L (3.5-5.1); Sodium 128 mmol/L (136-145)
--- NOTE | 2023-10-21 14:47 | XRay Report ---
XR chest 1V portable CLINICAL HISTORY: weakness COMPARISON STUDY: Chest radiograph April 17, 2019. FINDINGS: Lung volumes are normal. Lungs are clear. There is no pneumothorax or pleural effusion. Car diac size is stable. Mediastinal contours are normal. There is no evidence for pulmonary edema. IMPRESSION: No acute cardiopulmonary findings. ACT 112: Negative or not required by law. Electronically signed by: Tramaine Ac M.D. 10/21/2023 2:46 PM
[2023-10-21 14:49] LABS: Alanine Aminotransferase 31 U/L (7-52); Albumin Globulin Ratio 1.6 (0.9-2); Alkaline Phosphatase 34 U/L (34-104); Aspartate Aminotransferase 22 U/L (13-39); BUN Creatinine Ratio 36.3 (10-20); Blood Urea Nitrogen 74 mg/dl (6-23); Creatine Kinase 144 U/L (30-223); Creatinine Clr Calc Pharmacy 51.4 ml/min; Est GFR (Non-African American) 33.7 ml/min; Globulin 2.8 gm/dl (2.5-4.0); Glucose 109 mg/dl (70-99(Fasting)); Lipase 56 U/L (11-82); Total Protein 7.2 gm/dl (6.0-8.3)
--- NOTE | 2023-10-21 14:49 | XRay Report ---
XR foot RT min 3V routine CLINICAL HISTORY: Right foot pain. COMPARISON: None FINDINGS: Alignment of the right foot is anatomic. Tarsometatarsal joints are intact. There is no ac [place] fracture. No osseous lesions are identified. Mild midfoot osteoarthritis. IMPRESSION: 1. No fracture or dislocation within the right foot. 2. Mild mid foot osteoarthritis. ACT 112: Negative or not required by law. Electronically signed by: Tramaine Ac M.D. 10/21/2023 2:48 PM
--- NOTE | 2023-10-21 14:51 | Electrocardiogram Report ---
Test Reason : Blood Pressure : / mmHG Vent. Rate : 078 BPM Atrial Rate : 078 BPM P-R Int : 178 ms QRS Dur : 090 ms QT Int : 338 ms P-R-T Axes : 044 005 053 degrees QTc Int : 385 ms Normal sinus rhythm Normal ECG When compared with ECG of 17-APR-2019 14:02, QT has shortened Confirmed by Wenceslao Barbosa ([id number]) on 10/21/2023 2:51:32 PM Referred By: Confirmed By:Wenceslao Barbosa
[2023-10-21 14:52] LABS: Troponin I High Sensitivity 6.5 pg/ml (0-20)
[2023-10-21 15:03] LABS: Partial Thromboplastin Ratio 0.9; Partial Thromboplastin Time 23 Seconds (21-31); Prothrombin Time 10.5 Seconds (9.0-12.0)
[2023-10-21] MEDS: SODIUM CHLORIDE 0.9% 1,000 ML IV ONE (15:09)
[2023-10-21 15:16] LABS: Appearance Urine Clear (Clear); Bilirubin Urine Negative (Negative); Blood Urine Negative (Negative); Color Urine Yellow; Glucose Urine UA Negative (Negative); Ketones Urine Negative (Negative); Leukocyte Esterase Urine Negative (Negative); Nitrite Urine Negative (Negative); Protein Urine Negative (Negative); Specific Gravity Urine 1.016 (1.000-1.030); Urobilinogen Urine Negative (Negative); pH Urine 5.5 (4.5-7.5)
[2023-10-21 15:37] LABS: C Reactive Protein < 0.50 mg/dl (0-0.5)
--- NOTE | 2023-10-21 16:40 | History & Physical Report ---
Date of Service October 21, 2023 Assessment & Plan (1) MAGDA (acute kidney injury): Plan: Sent in for a outpatient creatinine 3.16 on 10/19 BUN 74, creatinine 2.04 (baseline around 1.0), and EGFR 33.7 on arrival Likely secondary to recent Bactrim use for foot cellulitis Avoid nephrotoxic agents for possible NSS 2000 mL IV given in ED IVF resuscitation overnight with Plasma-Lyte at 125 mL an hour x 2 Hold olmesartan and diuretics A.m. CBC, BMP, mag (2) Acute hyperkalemia: Plan: K 5.7 on arrival IVF resuscitation (as above) Will add on calcium gluconate, insulin, and dextrose if uptrending Trend BMP (3) Acute hyponatremia: Plan: NA 128 on arrival SIADH labs revealed regular sodium/urine osmolality Patient's urine sodium was >30 (which could indicate SIADH), patient is currently on diuretics (chlorthalidone and spironolactone) Suspect could be secondary to recent infection rather than SIADH, as patient's sodium levels improved with NSS 2000 mL IV Hold diuretics for now, and trend BMP as above (4) Contact dermatitis due to poison maddison: Plan: Patient completed course of outpatient steroids, Bactrim, and Keflex Leukocytosis at 12.99 with a lymphocytic predominance on arrival; afebrile Largely resolved at this time (5) Alcohol use: Plan: Patient endorses drinking 5-6 drinks per day Last drink the evening of 10/19 prior to ED arrival Patient denies history of seizures or alcohol withdrawal Will place on AWSS at risk protocol with Ativan as needed Uric acid level ordered, pending (6) Diabetes: Plan: Last A1c at 6.8% on 09/21/2023 Not currently on diabetic medications SSI with target BSG range 110-140mg/dL, CF 50, carb ratio 15 T2DM diet BSG ACHS Adjust regimen as needed (7) Hypotension: Plan: Hold amlodipine for now (8) NAFLD (nonalcoholic fatty liver disease): Plan Disposition: Obs -admit to [facility] telemetry Full code T2DM diet VTE PPx: Teds History of Present Illness Chief Complaint: Abnormal labs/diagnostic testing, elevated creatinine Primary Care Provider: Jesenia Graves MD Williams is a 63-year-old male with PMH of HTN, hypercholesteremia, GERD, Schatzki's ring, NAFLD, liver fibrosis, alcohol use, cellulitis, and diabetes. He presented on 10/20 at the behest of his PCP for abnormal outpatient labs. Patient also reports he has been having dizziness/lightheadedness/muscle spasms. Outpatient labs showed an acute kidney injury with elevated creatinine at 3.16, as well as elevated potassium at 5.5. Patient reports he was out golfing on Thursday and Thursday, and was experiencing new onset dizziness and lightheadedness with walking; he could not barely complete 6 holes which is unusual for him. He then began developing muscle cramps on Thursday. He had an episode of severe muscle cramps throughout his entire body on Thursday and went to his PCPs office. In his PCP's office, his BP was reported to be 69/49, repeat was 79/54, and patient's PCP told him to hold all blood pressure medications. Patient was seen 1 week ago for poison maddison on his right foot and across his body, which is resolved. However, he was placed on a course of outpatient steroids, Bactrim, and Keflex which she completed. Patient did not take any of his regular morning medications today; last took his BP medications yesterday morning but was told to hold him. 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 Patient denies smoking or check tobacco use, but does report daily alcohol use. He reports he has 5-6 12 ounce drinks per day, and has drank daily for extended period of time. Denies history of seizures or alcohol withdrawal. Patient's vitals are stable at time of admission. ED course: NSS 1000 mL IV x 2 ROS: Patient endorses dizziness/lightheadedness with movements, intermittent muscle cramps, and intermittent burning sensation in right foot. Patient denies fever, chills, night-sweats, VILLALPANDO, chest pain, pleuritic CP, chest palpitations, SOB, abdominal pain, N/V/D, or numbness/tingling in the arms or legs. Allergies Allergy/AdvReac Type Severity Reaction Status Date / Time No Known Drug Allergies Allergy Verified 10/20/23 13:18 Home Medications Medication Instructions Recorded Confirmed Type olmesartan 40 mg tablet 40 mg PO DAILY #90 tabs 03/03/23 10/21/23 Rx amlodipine 5 mg tablet 5 mg PO DAILY #90 tabs 03/09/23 10/21/23 Rx chlorthalidone 25 mg tablet 12.5 mg (1/2 x 25 mg) PO DAILY #45 03/09/23 10/21/23 Rx tabs pantoprazole 40 mg tablet,delayed 40 mg PO QAM #90 tabs 03/09/23 10/21/23 Rx release rosuvastatin 40 mg tablet 40 mg PO DAILY #90 tabs 09/22/23 10/21/23 Rx spironolactone 50 mg tablet 50 mg PO DAILY #90 tabs 10/01/23 10/21/23 Rx baclofen 5 mg tablet 5 mg PO TID PRN Other 10/20/23 10/21/23 History magnesium 200 mg tablet 200 mg PO .EVERY OTHER DAY 10/20/23 10/21/23 History multivitamin (Multiple Vitamins 1 tab PO DAILY 10/20/23 10/21/23 History tablet) potassium chloride 10 mEq 10 meq PO .EVERY OTHER DAY 10/20/23 10/21/23 History tablet,extended release(part/cryst) Past Med/Surg History Problem List (Updated 10/21/23 @ 17:19 by Augusto Owens PA-C) Hypotension Acute hyponatremia (Acute) Acute hyperkalemia (Acute) MAGDA (acute kidney injury) (Acute) Diabetes Muscle cramping Cellulitis (Acute) Contact dermatitis due to poison maddison (Acute) Alcohol abuse Severe obesity (BMI >= 40) Liver fibrosis Alcoholic fatty liver NAFLD (nonalcoholic fatty liver disease) Alcohol use Dyslipidemia (high LDL; low HDL) Primary hypertension Fatty liver likely mixed NAFLD & alcohol related fatty liver Seborrheic keratoses GERD (gastroesophageal reflux disease) Microscopic hematuria (Chronic) Allergic rhinitis (Chronic) Chronic reflux esophagitis (Chronic) Hiatal hernia (Chronic) Hypercholesterolemia (Chronic) Hyperglycemia (Chronic) Schatzki's ring (Chronic) Hypertension (Chronic) Medical History GERD (gastroesophageal reflux disease) Surgical History History of arthroscopy of right knee History of arthroscopy of left knee History of tonsillectomy History of wisdom tooth extraction Family History Mother Diabetes Lung cancer Sister Diabetes Lung cancer Father Lung cancer Other Hypertension No family history of adverse response to anesthesia Denies family history of Ovarian cancer Prostate cancer Myocardial infarction Breast cancer Colorectal cancer Social History Smoking Status: Never smoker Second Hand Exposure: No; Do You Dip or Chew Tobacco: No; Hx Alcohol Use: Yes (Socially ) Alcohol type: beer Hx Substance Use: No Preferred Language: Polish Communication Ability: Effective Information Assistant Required: No Beliefs That Will Affect Care: None marital status: Current Living Situation: Spouse and Family current occupational status: employed 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 [employer] Feels Safe at Home: Yes Childhood Exposure to Second-Hand Smoke: Yes Dental Care, Regularly: Yes Physical Activity Frequency: 3-4 Times per Week Seatbelt Use: always Sunscreen Use: No Assistive Devices: Glasses Review of Systems Review of Systems: See HPI above Physical Exam Physical Exam: General: no acute distress; non-toxic appearing; well-nourished; cooperative HEENT: normocephalic, atraumatic; no scleral icterus; PERRLA w/ EOMs intact; moist mucus membrane; vision and hearing grossly intact Neck: supple; no lymphadenopathy; trachea midline Skin: warm, dry without signs of tenting; no cyanosis; no rashes, bruising, lesions, or erythema noted CV: chest wall NTP; RRR; S1/S2 normal; no murmurs/rubs/gallops; pulses intact and symmetric at radial, DP, and PT Lungs: no acute respiratory distress; symmetrical chest wall expansion; clear breath sounds across all lung louis w/o adventitious sounds; no wheezing ABD: Soft, NTP; BS present; no rebound/guarding; no distention MSK: no tics or fasciculations; no edema noted in the LEs b/l, nonerythematous Neuro: A&Ox3; normal mood and affect; fluent speech; no focal deficits; sensation grossly intact in the LEs b/l Results & Data Results & Data Vital Signs (Past 12 Hours) Vital Signs Temp Pulse Pulse Resp BP BP Pulse Ox 10/21/23 15:30 80 18 115/64 95 10/21/23 14:13 78 10/21/23 14:06 95 10/21/23 13:42 36.6 C 89 20 100/65 94 O2 Del Method 10/21/23 15:30 Room Air 10/21/23 14:13 10/21/23 14:06 Room Air 10/21/23 13:42 Room Air Laboratory Results Abnormal lab results 10/21/23 Range/Units 14:04 WBC 12.99 H (4.8-10.8) K/ul RBC 4.11 L (4.70-6.10) M/uL Hct 40.5 L (42.0-52.0) % MCH 34.1 H (25.0-34.0) pg Neut # (Auto) 7.58 H (1.40-6.50) K/uL Lymph # (Auto) 4.12 H (1.20-3.40) K/uL Amador # (Auto) 0.87 H (0.11-0.59) K/uL Sodium 128 L (136-145) mmol/L Potassium 5.7 H (3.5-5.1) mmol/L Carbon Dioxide 19 L (21-32) mmol/L BUN 74 H (6-23) mg/dl Creatinine 2.04 H D (0.6-1.4) mg/dl BUN/Creatinine Ratio 36.3 H (10-20) Glucose 109 H (70-99(Fasting)) mg/dl Diagnostic Findings Chest X-Ray 10/21/23 13:48 XR chest 1V portable CLINICAL HISTORY: weakness COMPARISON STUDY: Chest radiograph April 17, 2019. FINDINGS: Lung volumes are normal. Lungs are clear. There is no pneumothorax or pleural effusion. Cardiac size is stable. Mediastinal contours are normal. There is no evidence for pulmonary edema. IMPRESSION: No acute cardiopulmonary findings. ACT 112: Negative or not required by law. Electronically signed by: Tramaine Ac M.D. 10/21/2023 2:46 PM Foot X-Ray 10/21/23 13:48 XR foot RT min 3V routine CLINICAL HISTORY: Right foot pain. COMPARISON: None FINDINGS: Alignment of the right foot is anatomic. Tarsometatarsal joints are intact. There is no acute fracture. No osseous lesions are identified. Mild midfoot osteoarthritis. IMPRESSION: 1. No fracture or dislocation within the right foot. 2. Mild mid foot osteoarthritis. ACT 112: Negative or not required by law. Electronically signed by: Tramaine Ac M.D. 10/21/2023 2:48 PM ECG Additional Comments: ECG revealed NSR at 70 bpm; QTc 385 Code Status & VTE Plan Code Status Full code VTE Prophylaxis Plan VTE Prophylaxis will be ordered: Yes Supervising Physician Co-Signing Physician Notes Patient seen and examined, chart reviewed, case discussed with Augusto Owens PA-C and I agree with the assessment and plan as above except as otherwise noted Labs and images reviewed 63-year-old male recently treated for poison maddison with suspected superimposed cellulitis. He was on a course of Bactrim and steroid taper. Unfortunately creatinine has risen from baseline of around 1-3.16. Remains elevated at 2.04, though downtrending at time of admission. He is concurrently hyponatremic with increased fatigue, and hypotensive on ER evaluation and has been recommended for overnight observation. Suspect Bactrim induced kidney injury. Patient is clinically euvolemic. Initially also concerning for meth) improved SIADH; however following fluid repletion sodium improved and consistent with this. Will continue to trend. Potassium elevated, this is beginning to downtrend with fluids. Continue repletion. No EKG changes. Trended every 4 hours. If rising, EKG changes, or concern for dysrhythmia develops then add insulin/dextrose, Lokelma, calcium gluconate at that time. Agree with assessment and management above. Patient seen at the bedside, no evidence of residual cellulitis. Clinically appears well. Lungs are clear. Heart rate is regular. PG Care Time/CCT Total # of Minutes Spent Total Time Spent with Patient: Total time spent is greater than 50% in coordination of care (as documented) at patient's floor/unit and/or counseling patient: C[place] [address] INT INP/OBS CARE 3/75MIN Patient Type Established Medical Decision Making High Complexity Diagnoses MAGDA (acute kidney injury) N17.9 Acute hyperkalemia E87.5 Acute hyponatremia E87.1 Contact dermatitis due to poison maddison L23.7 Alcohol use Z72.89 Diabetes E11.9 Hypotension I95.9 NAFLD (nonalcoholic fatty liver disease) K76.0
[2023-10-21] MEDS ORDERED: LORazepam 1 MG in SYRINGE 0.5 ML IV PRN (17:21)
[2023-10-21 17:23] LABS: Albumin Globulin Ratio 1.6 (0.9-2); Albumin Level 4.1 gm/dl (3.4-5.0); BUN Creatinine Ratio 42.3 (10-20); Bilirubin,Total 0.7 mg/dl (0.2-1.0); Calcium 9.1 mg/dl (8.6-10.3); Creatinine Clr Calc Pharmacy 67.2 ml/min; Est GFR (Non-African American) 46.6 ml/min; Globulin 2.5 gm/dl (2.5-4.0); Potassium 5.5 mmol/L (3.5-5.1); Total Protein 6.6 gm/dl (6.0-8.3); Uric Acid 6.6 mg/dl (2.6-7.2)
[2023-10-21] MEDS: PLASMA-LYTE A 1,000 ML IV SCH (17:53)
[2023-10-21] MEDS ORDERED: ACETAMINOPHEN 325 MG TAB PO PRN (18:36)
[2023-10-21] MEDS ORDERED: DEXTROSE 50% 50 ML SYRINGE IV PRN (18:36)
[2023-10-21] MEDS ORDERED: ONDANSETRON INJ 2 MG/ML 2 ML VIAL IV PRN (18:36)
[2023-10-21] MEDS ORDERED: GLUCAGON FOR INJ 1 MG VIAL SQ PRN (18:36)
[2023-10-21] MEDS ORDERED: GLUCOSE 10 TAB/TUBE PO PRN (18:36)
[2023-10-21] MEDS ORDERED: CARBOHYDRATES FOR HYPOGLYCEMIA PO PRN (18:36)
[2023-10-21] MEDS ORDERED: GLUCOSE 40% GEL 15 GM TUBE PO PRN (18:36)
[2023-10-21] MEDS: INSULIN ASPART PER UNIT CHARGE SC SCH (21:05)
[2023-10-21 23:11] LABS: Calcium 8.9 mg/dl (8.6-10.3); Potassium 5.4 mmol/L (3.5-5.1)
[2023-10-21 23:24] LABS: BUN Creatinine Ratio 43.6 (10-20); Est GFR (Non-African American) 46.6 ml/min
[2023-10-22 07:51] LABS: Basophils # (auto) 0.05 K/uL (0.00-0.20); Basophils % (auto) 0.6 %; Eosinophils # (auto) 0.21 K/uL (0.00-0.50); Eosinophils % (auto) 2.5 %; Hemoglobin 12.6 g/dl (14.0-18.0); Immature Granulocytes # (auto) 0.05 K/uL (0.01-0.20); Immature Granulocytes % (auto) 0.6 %; Lymphocytes # (auto) 2.58 K/uL (1.20-3.40); Lymphocytes % (auto) 31.2 %; Mean Corpuscular Hemoglobin 34.1 pg (25.0-34.0); Mean Corpuscular Hgb Conc 34.1 g/dL (32.0-36.0); Mean Platelet Volume 9.7 fL (9.4-12.4); Monocytes # (auto) 0.54 K/uL (0.11-0.59); Monocytes % (auto) 6.5 %; Neutrophils # (auto) 4.85 K/uL (1.40-6.50); Neutrophils % (auto) 58.6 %; Platelet Count 158 K/uL (130-400); RDW Coefficient of Variation 11.6 % (11.5-14.5); RDW Standard Deviation 42.5 fL (36.4-46.3); White Blood Count 8.28 K/ul (4.8-10.8)
[2023-10-22] MEDS: PANTOprazole 40 MG TAB PO SCH (08:06)
[2023-10-22] MEDS: ROSUVASTATIN CALCIUM 20 MG TAB PO SCH (08:06)
[2023-10-22 08:11] LABS: Creatinine Clr Calc Pharmacy 106.3 ml/min; Est GFR (African American) 93.6 ml/min; Est GFR (Non-African American) 80.7 ml/min
[2023-10-22 08:12] LABS: BUN Creatinine Ratio 53.5 (10-20); Calcium 8.9 mg/dl (8.6-10.3); Magnesium 1.8 mg/dl (1.7-2.4); Potassium 5.4 mmol/L (3.5-5.1)
[2023-10-22] MEDS: PATIROMER CALCIUM SORBITEX 8.4 GM PACK PO SCH (11:26)
--- NOTE | 2023-10-22 13:40 | Hospitalist Progress Note ---
Date of Service October 22, 2023 Assessment & Plan (1) MAGDA (acute kidney injury): Plan: Presented after outpatient lab work revealed creatinine of 3.16 on 10/19 - On arrival, BUN 74, creatinine 2.04 (baseline around 1.0), and EGFR 33.7 - CK WNL at 144 on presentation - Likely secondary to recent Bactrim use for foot cellulitis - Received total of 4 L of IVF > MAGDA improved 10/21 -- BUN 53 and Cr 0.99 - Avoid nephrotoxic agents when possible - Hold olmesartan and diuretics (2) Acute hyperkalemia: Plan: K 5.7 on arrival - Received total of 4 L IVF - K decreased to 5.4 10/21 > Started Patiromer as K binding agent - Patient does take spironolactone at home, though it appears that his potassium is WNL at baseline > Monitor K response to treatment. If continues to remain elevated, could consider discontinuing spironolactone and using a different agent (3) Acute hyponatremia: Plan: NA 128 on arrival - SIADH labs revealed regular sodium/urine osmolality > Patient's urine sodium was >30 (which could indicate SIADH), patient is currently on diuretics (chlorthalidone and spironolactone) at home - Suspect could be secondary to recent infection rather than SIADH, as patient's sodium levels improved with NSS 2000 mL IV - Hold diuretics for now - Na 134 on 10/21 (4) Contact dermatitis due to poison maddison: Plan: Patient completed course of outpatient steroids, Bactrim, and Keflex for recent poison maddison infection and cellulitis - Leukocytosis at 12.99 with a lymphocytic predominance on arrival; afebrile - Largely resolved at this time (5) Alcohol use: Plan: Patient endorses drinking 5-6 drinks per day - Last drink the evening of 10/19 prior to ED arrival - Patient denies history of seizures or alcohol withdrawal - AWSS at risk protocol with Ativan as needed - Uric acid level WNL at 6.6 - No signs of alcohol withdrawal thus far in his hospitalization. Continue to monitor. (6) Diabetes: Plan: Last A1c at 6.8% on 09/21/2023 - Not currently on diabetic medications - SSI with target BSG range 110-140mg/dL, CF 50, carb ratio 15 - T2DM diet - BSG ACHS - Adjust regimen as needed (7) Hypotension: Plan: Hold amlodipine for now Plan Updated daughter at bedside Started Patiromer CODE STATUS: Full code VTE PPx: Teds Admission and Anticipated Discharge Date Admission Date: October 21, 2023 Subjective Patient seen and evaluated at bedside with his daughter. He reports that he is feeling back to his baseline currently. He denies any dizziness, lightheadedness, muscle aches/cramps, chest pain, palpitations, shortness of breath, numbness or tingling, abdominal pain, nausea, vomiting, or diarrhea. We discussed that his potassium is downtrended, though still remains elevated, his kidney function has improved, and his blood pressure is stable. He is agreeable to continuing his hospitalization until his electrolyte abnormalities are improved. No additional complaints or concerns at this time. Physical Exam Physical Exam: General: No acute distress, nondiaphoretic, well-developed, well-nourished. Skin: The skin was without rashes, erythema, edema, or bruising. Cardiac: Regular rate and rhythm without murmurs gallops or rubs. Pulm: Clear to auscultation bilaterally without wheezes, rales or rhonchi. No respiratory distress. 96% on room air. Abdominal: Soft, nontender, nondistended. Bowel sounds present. Neuro: A&O x3. No focal neurological deficits. Results & Data Results & Data Vital Signs (Past 12 Hours) Vital Signs Temp Pulse Pulse Resp BP BP Pulse Ox 10/22/23 11:32 56 L 18 119/77 96 10/22/23 11:06 36.6 C 77 18 110/71 99 10/22/23 07:49 36.4 C L 76 18 119/78 98 10/22/23 07:42 36.6 C 70 20 113/74 95 10/22/23 07:17 67 10/22/23 03:21 36.5 C 76 18 133/79 96 O2 Del Method 10/22/23 11:32 Room Air 10/22/23 11:06 Room Air 10/22/23 07:49 Room Air 10/22/23 07:42 Room Air 10/22/23 07:17 10/22/23 03:21 Room Air Laboratory Results Reviewed CBC Reviewed chemistries Reviewed UA Diagnostic Findings Chest X-Ray 10/21/23 13:48 XR chest 1V portable CLINICAL HISTORY: weakness COMPARISON STUDY: Chest radiograph April 17, 2019. FINDINGS: Lung volumes are normal. Lungs are clear. There is no pneumothorax or pleural effusion. Cardiac size is stable. Mediastinal contours are normal. There is no evidence for pulmonary edema. IMPRESSION: No acute cardiopulmonary findings. ACT 112: Negative or not required by law. Electronically signed by: Tramaine Ac M.D. 10/21/2023 2:46 PM Foot X-Ray 10/21/23 13:48 XR foot RT min 3V routine CLINICAL HISTORY: Right foot pain. COMPARISON: None FINDINGS: Alignment of the right foot is anatomic. Tarsometatarsal joints are intact. There is no acute fracture. No osseous lesions are identified. Mild midfoot osteoarthritis. IMPRESSION: 1. No fracture or dislocation within the right foot. 2. Mild mid foot osteoarthritis. ACT 112: Negative or not required by law. Electronically signed by: Tramaine Ac M.D. 10/21/2023 2:48 PM PG Care Time/CCT Total # of Minutes Spent Total Time Spent with Patient: Total time spent is greater than 50% in coordination of care (as documented) at patient's floor/unit and/or counseling patient: Coding Level of Care Code 79846 SUB INP/OBS CARE 3/50MIN Diagnoses MAGDA (acute kidney injury) N17.9 Acute hyperkalemia E87.5 Acute hyponatremia E87.1 Contact dermatitis due to poison maddison L23.7 Alcohol use Z72.89 Diabetes E11.9 Hypotension I95.9
[2023-10-23 17:48] LABS: Albumin Globulin Ratio 1.6 (0.9-2); Albumin Level 4.4 gm/dl (3.4-5.0); BUN Creatinine Ratio 38.3 (10-20); Bilirubin,Total 0.5 mg/dl (0.2-1.0); Calcium 9.8 mg/dl (8.6-10.3); Creatinine Clr Calc Pharmacy 98.4 ml/min; Est GFR (African American) 85.2 ml/min; Est GFR (Non-African American) 73.5 ml/min; Globulin 2.7 gm/dl (2.5-4.0); Magnesium 1.8 mg/dl (1.7-2.4); Potassium 4.7 mmol/L (3.5-5.1); Total Protein 7.1 gm/dl (6.0-8.3)
--- NOTE | 2023-10-23 19:08 | Discharge Summary ---
Discharge Summary Date of Service October 23, 2023 Principal Dx & Hospital Course #1 = Principal Diagnosis (1) MAGDA (acute kidney injury): Presented after outpatient lab work revealed creatinine of 3.16 on 10/19 - On arrival, BUN 74, creatinine 2.04 (baseline around 1.0), and EGFR 33.7 - CK WNL at 144 on presentation - Likely secondary to recent Bactrim use for foot cellulitis - Received total of 4 L of IVF > MAGDA improved 10/21 -- BUN 53 and Cr 0.99 - Avoid nephrotoxic agents when possible (2) Acute hyperkalemia: K 5.7 on arrival - Received total of 4 L IVF - K decreased to 5.4 10/21 > Started Patiromer as K binding agent - Patient does take spironolactone at home, though it appears that his potassium is WNL at baseline - K improved to 4.7 on 10/22. - Lab slip given to patient to get labs drawn on 10/23 prior to his PCP a ppointment on 10/24. - Hold spironolactone, chlorthalidone, and amiodarone until seen by PCP on 10/25/23. (3) Acute hyponatremia: NA 128 on arrival - SIADH labs revealed regular sodium/urine osmolality > Patient's urine sodium was >30 (which could indicate SIADH), patient is currently on diuretics (chlorthalidone and spironolactone) at home - Suspect could be secondary to recent infection rather than SIADH, as patient's sodium levels improved with NSS 2000 mL IV - Hold diuretics for now - Na 135 on 10/22 (4) Contact dermatitis due to poison maddison: Patient completed course of outpatient steroids, Bactrim, and Keflex for recent poison maddison infection and cellulitis - Leukocytosis at 12.99 with a lymphocytic predominance on arrival; afebrile - Largely resolved at this time (5) Alcohol use: Patient endorses drinking 5-6 drinks per day - Last drink the evening of 10/19 prior to ED arrival - Patient denies history of seizures or alcohol withdrawal - AWSS at risk protocol with Ativan as needed - Uric acid level WNL at 6.6 - No signs of alcohol withdrawal during his hospitalization. (6) Diabetes: Last A1c at 6.8% on 09/21/2023 - Not currently on diabetic medications - SSI with target BSG range 110-140mg/dL, CF 50, carb ratio 15 - T2DM diet - BSG ACHS - Adjust regimen as needed Recommend close monitor and starting oral agent if appropriate in outpatient setting. (7) Hypotension: Hold amlodipine for now Hold spironolactone, chlorthalidone, and amiodarone until seen by PCP on 10/25/23. Plan CODE STATUS: Full code Notes For Next Care Provider Patient presented for hyperkalemia and MAGDA. He was treated with IV fluids and Patiromer and responded appropriately. Lab slip given to patient to get labs on 10/23 prior to his PCP appointment scheduled for 10/24. Medication Changes From Visit Hold spironolactone, chlorthalidone, and amiodarone until seen by PCP on 10/25/23. Admission HPI Per Admitting Provider Williams is a 63-year-old male with PMH of HTN, hypercholesteremia, GERD, Schatzki's ring, NAFLD, liver fibrosis, alcohol use, cellulitis, and diabetes. He presented on 10/20 at the behest of his PCP for abnormal outpatient labs. Patient also reports he has been having dizziness/lightheadedness/muscle spasms. Outpatient labs showed an acute kidney injury with elevated creatinine at 3.16, as well as elevated potassium at 5.5. Patient reports he was out golfing on Thursday and Thursday, and was experiencing new onset dizziness and lightheadedness with walking; he could not barely complete 6 holes which is unusual for him. He then began developing muscle cramps on Thursday. He had an episode of severe muscle cramps throughout his entire body on Thursday and went to his PCPs office. In his PCP's office, his BP was reported to be 69/49, repeat was 79/54, and patient's PCP told him to hold all blood pressure medications. Patient was seen 1 week ago for poison maddison on his right foot and across his body, which is resolved. However, he was placed on a course of outpatient steroids, Bactrim, and Keflex which she completed. Patient did not take any of his regular morning medications today; last took his BP medications yesterday morning but was told to hold him. 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 Patient denies smoking or check tobacco use, but does report daily alcohol use. He reports he has 5-6 12 ounce drinks per day, and has drank daily for extended period of time. Denies history of seizures or alcohol withdrawal. Patient's vitals are stable at time of admission. ED course: NSS 1000 mL IV x 2 ROS: Patient endorses dizziness/lightheadedness with movements, intermittent muscle cramps, and intermittent burning sensation in right foot. Patient denies fever, chills, night-sweats, VILL[place]ANDO, chest pain, pleuritic CP, chest palpitations, SOB, abdominal pain, N/V/D, or numbness/tingling in the arms or legs. Admission Exam Per Admitting Provider General: no acute distress; non-toxic appearing; well-nourished; cooperative HEENT: normocephalic, atraumatic; no scleral icterus; PERRLA w/ EOMs intact; moist mucus membrane; vision and hearing grossly intact Neck: supple; no lymphadenopathy; trachea midline Skin: warm, dry without signs of tenting; no cyanosis; no rashes, bruising, lesions, or erythema noted CV: chest wall NTP; RRR; S1/S2 normal; no murmurs/rubs/gallops; pulses intact and symmetric at radial, DP, and PT Lungs: no acute respiratory distress; symmetrical chest wall expansion; clear breath sounds across all lung louis w/o adventitious sounds; no wheezing ABD: Soft, NTP; BS present; no rebound/guarding; no distention MSK: no tics or fasciculations; no edema noted in the LEs b/l, nonerythematous Neuro: A&Ox3; normal mood and affect; fluent speech; no focal deficits; sensation grossly intact in the LEs b/l Discharge Exam General: No acute distress, nondiaphoretic, well-developed, well-nourished. Skin: The skin was without rashes, erythema, edema, or bruising. Cardiac: Regular rate and rhythm without murmurs gallops or rubs. Pulm: Clear to auscultation bilaterally without wheezes, rales or rhonchi. No respiratory distress. 97% on room air. Abdominal: Soft, nontender, nondistended. Bowel sounds present. Neuro: A&O x3. No focal neurological deficits. Updated Medication List Medication Instructions Recorded Confirmed Type olmesartan 40 mg tablet 40 mg PO DAILY #90 tabs 03/03/23 10/21/23 Rx amlodipine 5 mg tablet 5 mg PO DAILY #90 tabs 03/09/23 10/21/23 Rx chlorthalidone 25 mg tablet 12.5 mg (1/2 x 25 mg) PO DAILY #45 03/09/23 10/21/23 Rx tabs pantoprazole 40 mg tablet,delayed 40 mg PO QAM #90 tabs 03/09/23 10/21/23 Rx release rosuvastatin 40 mg tablet 40 mg PO DAILY #90 tabs 09/22/23 10/21/23 Rx spironolactone 50 mg tablet 50 mg PO DAILY #90 tabs 10/01/23 10/21/23 Rx baclofen 5 mg tablet 5 mg PO TID PRN Other 10/20/23 10/21/23 History magnesium 200 mg tablet 200 mg PO .EVERY OTHER DAY 10/20/23 10/21/23 History multivitamin (Multiple Vitamins 1 tab PO DAILY 10/20/23 10/21/23 History tablet) potassium chloride 10 mEq 10 meq PO .EVERY OTHER DAY 10/20/23 10/21/23 History tablet,extended release(part/cryst) Hospital Stay Data Diagnostic Imagining Performed Chest X-Ray 10/21/23 13:48 XR chest 1V portable CLINICAL HISTORY: weakness COMPARISON STUDY: Chest radiograph April 17, 2019. FINDINGS: Lung volumes are normal. Lungs are clear. There is no pneumothorax or pleural effusion. Cardiac size is stable. Mediastinal contours are normal. There is no evidence for pulmonary edema. IMPRESSION: No acute cardiopulmonary findings. ACT 112: Negative or not required by law. Electronically signed by: Tramaine Ac M.D. 10/21/2023 2:46 PM Foot X-Ray 10/21/23 13:48 XR foot RT min 3V routine CLINICAL HISTORY: Right foot pain. COMPARISON: None FINDINGS: Alignment of the right foot is anatomic. Tarsometatarsal joints are intact. There is no acute fracture. No osseous lesions are identified. Mild midfoot osteoarthritis. IMPRESSION: 1. No fracture or dislocation within the right foot. 2. Mild mid foot osteoarthritis. ACT 112: Negative or not required by law. Electronically signed by: Tramaine Ac M.D. 10/21/2023 2:48 PM Discharge Instructions Given to Patient (Per Discharging Provider) Discharge instructions were handwritten during [facility] outage on 10/22. They have been scanned into his chart. Total Time Total Time Spent Total Time Spent (In Minutes): Greater than 30 minutes spent completing this discharge process including direct patient care, medication reconciliation, documentation, review of labs and images, and coordination of care. Coding Level of Care Code 68449 INP/OBS DISCH >30 MIN Diagnoses MAGDA (acute kidney injury) N17.9 Acute hyperkalemia E87.5 Acute hyponatremia E87.1 Contact dermatitis due to poison maddison L23.7 Alcohol use Z72.89 Diabetes E11.9 Hypotension I95.9
== END 2023-10-23 14:45 | disposition home or self-care (01) ==
LOC: 2N 13:40 → ED 13:40 → SUATTDRO 17:13 → 2N 17:59